=== PATIENT | female | born 1955 | race Caucasian/White ===

== ENCOUNTER 2020-06-20 23:05 | Observation (INO) | payer MEDICARE ==
--- NOTE | 2020-06-20 23:19 | ED ---
Chest Pain HPI - General Chief Complaint: Chest Pain Stated Complaint: SOB, Chest Pain Time Seen by Provider: 06/20/20 23:08 Source: patient, EMS, RN notes reviewed, old records reviewed Mode of arrival: EMS Limitations: no limitations - History of Present Illness Initial Comments: This is a 62-year-old female DF for evaluation with history of heart disease. Patient coming in for severe chest pain today. Patient is going to [facility], but does have significant history of CAD with MT. Patient coming in for chest pain today and severely elevated blood pressure at [facility] patient has persistent chest pain here in the ER. Patient is a cigarette for alcohol withdrawal. MD Complaint: chest pain -: days(s) Onset: during rest, during exertion Pain Location: substernal Pain Radiation: none Severity: mild Severity scale (1-10): 3 Quality: tightness, heaviness Consistency: constant Improves With: nothing Worsens With: nothing Context: other (going through alcohol withdrawal at [facility]) Anginal Symptoms: nausea Other Symptoms: palpitations Treatments Prior to Arrival: none - Related Data Home Medications Medication Instructions Recorded Confirmed Acetaminophen [Tylenol Arthritis] 650 mg PO Q4H PRN 06/21/20 06/21/20 Carvedilol [Coreg] 12.5 mg PO BID@0600,1730 06/21/20 06/21/20 Chlorpheniramine Maleate 4 mg PO Q4H PRN 06/21/20 06/21/20 [Chlor-Trimeton] Loperamide [Imodium] 2 mg PO QID PRN 06/21/20 06/21/20 Multivitamins, Thera [Multivitamin 1 tab PO DAILY@0600 06/21/20 06/21/20 (formulary)] Thiamine [Vitamin B-1] 100 mg PO DAILY@0600 06/21/20 06/21/20 Tigan 200mg 200 mg IM Q6H PRN 06/21/20 06/21/20 Trimethobenzamide [Tigan] 300 mg PO Q6H PRN 06/21/20 06/21/20 Zofran 42mg/Ml 4 mg IM Q6H PRN 06/21/20 06/21/20 busPIRone HCl [Buspar] 10 mg PO TID PRN 06/21/20 06/21/20 cloNIDine HCL [Catapres] 0.3 mg PO Q4H PRN 06/21/20 06/21/20 ondansetron HCL [Zofran] 8 mg PO Q6H PRN 06/21/20 06/21/20 traZODone HCL 50 - 150 mg PO HS 06/21/20 06/21/20 Previous Rx's Medication Instructions Recorded Etodolac [Lodine] 400 mg PO BID #10 tab 06/21/20 Famotidine [Pepcid] 20 mg PO BID #20 tablet 06/21/20 Allergies Allergy/AdvReac Type Severity Reaction Status Date / Time No Known Allergies Allergy Verified 06/21/20 07:49 Review of Systems ROS Statement: Those systems with pertinent positive or pertinent negative responses have been documented in the HPI. ROS Other: All systems not noted in ROS Statement are negative. EKG Findings - EKG Comments: EKG Findings:: KG shows normal sinus rhythm rate of 64 SD 150 QRS 78 QTc 453 Past Medical History Past Medical History: Blood Disorder, Myocardial Infarction (MT), Musculoskeletal Disorder Additional Past Medical History / Comment(s): mi 2016, Hep C History of Any Multi-Drug Resistant Organisms: None Reported Past Surgical History: No Surgical Hx Reported Smoking Status: Current every day smoker Past Alcohol Use History: Abuse Past Drug Use History: None Reported General Exam Limitations: no limitations General appearance: alert, in no apparent distress Head exam: Present: atraumatic, normocephalic, normal inspection Eye exam: Present: normal appearance, PERRL, EOMI. Absent: scleral icterus, conjunctival injection, periorbital swelling ENT exam: Present: normal exam, mucous membranes moist Neck exam: Present: normal inspection. Absent: tenderness, meningismus, lymphad enopathy Respiratory exam: Present: normal lung sounds bilaterally. Absent: respiratory distress, wheezes, rales, rhonchi, stridor Cardiovascular Exam: Present: regular rate, normal rhythm, normal heart sounds. Absent: systolic murmur, diastolic murmur, rubs, gallop, clicks GI/Abdominal exam: Present: soft, normal bowel sounds. Absent: distended, tenderness, guarding, rebound, rigid Extremities exam: Present: normal inspection, full ROM, normal capillary refill. Absent: tenderness, pedal edema, joint swelling, calf tenderness Back exam: Present: normal inspection Neurological exam: Present: alert, oriented X3, CN II-XII intact Psychiatric exam: Present: normal affect, normal mood Skin exam: Present: warm, dry, intact, normal color. Absent: rash Course Vital Signs 06/20/20 06/21/20 06/21/20 23:09 02:08 02:18 Temperature 98.0 F 97.3 F L Pulse Rate 73 57 L Pulse Rate [ 50 L Pulse Oximetery ] Respiratory 16 17 16 Rate Blood Pressure 90/69 135/74 Blood Pressure 169/95 [Left Arm] O2 Sat by Pulse 97 94 L 95 Oximetry - Reevaluation(s) Reevaluation #1: Medical record is reviewed Patient is from [facility], for alcohol withdrawal Patient does feel better here in the ER Spoke with patient regarding findings here in the ER and questions are answered Patient has continued chest pain here in the ER blood pressure does continue to be very labile - Consultations Consultation #1: Spoke with PMH were agree for admission Chest Pain MDM - MDM [address] with history of MT patient coming with chest pain today. Patient is having severe anterior chest pain no fevers no shortness of breath currently. Patient did have significantly elevated blood pressure with blood pressure changes. Patient will be admitted for cardiac observation Critical Care Time Critical Care Time: Yes Total Critical Care Time: 31 Disposition Clinical Impression: Chest pain Disposition: ADMITTED IP TO THIS HOSP Condition: Undetermined Is patient prescribed a controlled substance at d/c from ED?: No
--- NOTE | 2020-06-20 23:47 | XR ---
EXAMINATION TYPE: XR chest 1V portable DATE OF EXAM: 06/20/2020 COMPARISON: NONE HISTORY: Short of breath TECHNIQUE: FINDINGS: Heart appears enlarged. There is no heart failure. Thoracic aorta is atheromatous. There is probably some minimal atelectasis at the lung bases. There are chest leads. Bony thorax appears inta ct. IMPRESSION: Mild subsegmental atelectasis at the lung bases.
[2020-06-20 23:48] LABS: Basophils # (A) 0.1 k/uL (0-0.2); Basophils % (A) 2 %; Eosinophils # (A) 0.1 k/uL (0-0.7); Eosinophils % (A) 2 %; HCT 37.6 % (34.0-46.0); HGB 12.2 gm/dL (11.4-16.0); Lymphocytes % (A) 41 %; MCH 29.8 pg (25.0-35.0); MCHC 32.6 g/dL (31.0-37.0); MCV 91.4 fL (80.0-100.0); Mean Platelet Volume 8.3; Monocytes # (A) 0.5 k/uL (0-1.0); Monocytes % (A) 10 %; Neutrophils # (A) 2.1 k/uL (1.3-7.7); Neutrophils % (A) 43 %; Platelet Count 209 k/uL (150-450); RBC 4.11 m/uL (3.80-5.40); RDW 15.4 % (11.5-15.5)
[2020-06-20 23:58] LABS: Partial Thromboplastin Time 23.9 sec (22.0-30.0); Prothrombin Time 10.7 sec (9.0-12.0)
[2020-06-21] MEDS ORDERED: SODIUM CHLORIDE 0.9% 1,000 ML IV STA ×3 (00:07→00:10)
[2020-06-21 00:20] LABS: ALT 25 U/L (4-34); AST 44 U/L (14-36); African American GFR (CKD) >90 (>60 ml/min/1.73 sqM); Albumin 4.1 g/dL (3.5-5.0); Alkaline Phosphatase 62 U/L (38-126); Anion Gap 7 mmol/L; Blood Urea Nitrogen 12 mg/dL (7-17); C Reactive Protein <5.0 mg/L (<10.0); Calcium 9.4 mg/dL (8.4-10.2); Carbon Dioxide 27 mmol/L (22-30); Chloride 104 mmol/L (98-107); Glucose 100 mg/dL (74-99); LDH 420 U/L (313-618); Magnesium 1.6 mg/dL (1.6-2.3); Non-African American GFR(CKD) 80 (>60 ml/min/1.73 sqM); Potassium 3.5 mmol/L (3.5-5.1); Sodium 138 mmol/L (137-145); Total Bilirubin 0.5 mg/dL (0.2-1.3); Total Protein 7.5 g/dL (6.3-8.2)
--- NOTE | 2020-06-21 01:24 | CT ---
EXAM: CT Angiography Chest With Intravenous Contrast CLINICAL HISTORY: ITS.REASON CT Reason: cp TECHNIQUE: Axial computed tomographic angiography images of the chest with intravenous contrast. CTDI is 15.17 mGy and DLP is 300.2 mGy-cm. This CT exam was performed using one or more of the following dose reduction techniques: automated exposure control, adjustment of the mA and/or kV according to patient size, and/or use of iterative reconstruction technique. MIP reconstructed images were created and reviewed. COMPARISON: No relevant prior studies available. FINDINGS: Pulmonary arteries: Unremarkable. No pulmonary embolism. Aorta: No acute findings. No thoracic aortic aneurysm. Lungs: Trace bibasilar atelectasis. Mild paraseptal emphysema. No mass. No consolidation. Pleural space: Unremarkable. No significant effusion. No pneumothorax. Heart: Cardiomegaly with reflux of contrast into the hepatic veins. No significant pericardial effusion. Bones/joints: No acute fracture. No dislocation. Soft tissues: Unremarkable. Lymph nodes: Unremarkable. No enlarged lymph nodes. IMPRESSION: 1. No acute pulmonary embolus. 2. Cardiomegaly with reflux of contrast into the hepatic veins which may be seen in the setting of elevated right heart pressures.
[2020-06-21] MEDS ORDERED: NITROGLYCERIN SL TABS 0.4 MG TAB SUBLINGUAL PRN (01:57)
[2020-06-21] MEDS ORDERED: ASPIRIN 81 MG PO STA (01:57)
[2020-06-21] MEDS: MORPHINE SULFATE 4 MG/ML SYRINGE IV PRN ×3 (02:21→11:18)
[2020-06-21] MEDS ORDERED: LOPERAMIDE 2 MG CAP PO PRN (11:41)
[2020-06-21] MEDS ORDERED: TRIMETHOBENZAMIDE 300 MG CAP PO PRN (11:41)
[2020-06-21] MEDS ORDERED: ONDANSETRON 4 MG TAB PO PRN (11:41)
[2020-06-21] MEDS ORDERED: TRIMETHOBENZAMIDE 100 MG/ML 2 ML VIAL IM PRN (11:41)
[2020-06-21] MEDS ORDERED: diphenhydrAMINE 25 MG CAP PO PRN (11:41)
[2020-06-21] MEDS ORDERED: ACETAMINOPHEN TAB 325 MG TAB PO PRN (11:41)
[2020-06-21] MEDS ORDERED: CAFFEINE CITRATE 60 MG/3 ML VIAL IV PRN (11:54)
[2020-06-21] MEDS ORDERED: AMINOPHYLLINE 500 MG/20 ML VIAL IV PRN (11:54)
[2020-06-21] MEDS ORDERED: REGADENOSON 0.4 MG/5 ML SYRINGE IV PRN (11:54)
--- NOTE | 2020-06-21 12:52 | P.CRDCN ---
History of Present Illness History of present illness: HISTORY OF PRESENTING ILLNESS This is a pleasant 64-year-old female past medical history significant for ankylosing spondylitis, Lipitor arthritis, hepatitis C, hypertension, apparent duodenal tear approximately one year ago, tobacco abuse, Vaping abuse, alcohol abuse, questionable "CT" in 2016 who presents secondary to episodes of chest pain, lightheadedness. She has been having chest pain which radiates to both arms off and on over the last few days radiating to the neck. She admits to some associated shortness breath. She was given nitroglycerin in the emergency department however this did not have much effect. She admits she has been drinking much more or last 1 year and therefore went to rehab to detox. She apparently was there and then started noticing that with exertion she will get short of breath and also had some chest pain. She states she believes she had a "small heart attack" back in 2016 out of [facility]. Apparently she had a heart catheterization which showed no significant disease however was also told that she had "damage to a small part of her heart". She admits she has not followed up with her primary wet roaster, Dr. Emmanuel. She had CTA PE protocol which showed no PE and questionable cardiomegaly with reflux contrast in the hepatic veins. DIAGNOSTICS EKG reveals normal sinus rhythm, Q waves V1 and V2, no significant ST or T-wave abnormalities. CTA chest showed no PE and cardiomegaly Laboratory reviewed, white blood cell count 5.0, hemoglobin 12.2, platelets 209, creatinine 0.8, AST 44, ALT 25, troponins less than 0.012, CRP less than 5. Current cardiac medications include carvedilol 12.5 mg twice a day, aspirin 325 mg daily, nitro as needed. REVIEW OF SYSTEMS At the time of my exam: CONSTITUTIONAL: Denies fever or chills. CARDIOVASCULAR: + chest pain, +shortness of breath, no orthopnea, PND or palpitations. RESPIRATORY: Denies cough. GASTROINTESTINAL: Denies abdominal pain, diarrhea, constipation, nausea or vomiting. MUSCULOSKELETAL: Denies myalgias. NEUROLOGIC: Denies numbness, tingling or weakness. ENDOCRINE: Denies fatigue, weight change, polydipsia or polyurina. GENITOURINARY: Denies burning, hematuria or urgency with micturation. HEMATOLOGIC: Denies history of anemia or bleeding. PHYSICAL EXAMINATION Vital signs reviewed CONSTITUTIONAL: No apparent distress. HEENT: Head is normocephalic. Pupils are equal, round. Sclerae anicteric. Mucous membranes of the mouth are moist. No JVD. No carotid bruit. CHEST EXAMINATION: Lungs are clear to auscultation. No chest wall tenderness is noted on palpation or with deep breathing. HEART EXAMINATION: Regular rate and rhythm. S1, S2 heard. No murmurs, gallops or rub. ABDOMEN: Soft, nontender. Positive bowel sounds. EXTREMITIES: 2+ peripheral pulses, no lower extremity edema and no calf tenderness. NEUROLOGIC EXAMINATION: Patient is awake, alert and oriented x3. ASSESSMENT 1. Atypical chest pain, troponins negative 3, CTA PE protocol no PE 2. Shortness of breath of unclear etiology. Patient stable on room air without significant hypoxia. 3. Tobacco abuse, vaping 4. Chronic alcohol abuse, recently undergoing rehab 5. Questionable history of "small CT" however normal heart catheterization reportedly per patient in 2016 6. Ankylosing spondylitis 7. Rheumatoid arthritis 8. Hypertension, labile 9. Hepatitis C PLAN Patient normally follows with a Dr Emmanuel and had prior workup at [facility] in 2016. Patient's symptoms are somewhat atypical and troponins negative 3. We will check an echo and Lexiscan stress test. If both are unrevealing, patient may be discharged from cardiology standpoint with outpatient follow-up. Advised tobacco and alcohol cessation. Past Medical History Past Medical History: Blood Disorder, Myocardial Infarction (CT), Musculoskeletal Disorder Additional Past Medical History / Comment(s): mi 2016, Hep C, ETOH use states she would drink a fifth of vodka a day. Last Myocardial Infarction Date:: 2015 History of Any Multi-Drug Resistant Organisms: None Reported Past Surgical History: No Surgical Hx Reported Past Anesthesia/Blood Transfusion Reactions: No Reported Reaction Past Psychological History: No Psychological Hx Reported Smoking Status: Current every day smoker, Vaper Past Alcohol Use History: Abuse Past Drug Use History: None Reported Medications and Allergies Home Medications Medication Instructions Recorded Confirmed Type Acetaminophen [Tylenol Arthritis] 650 mg PO Q4H PRN 06/21/20 06/21/20 History Carvedilol [Coreg] 12.5 mg PO BID@0600,1730 06/21/20 06/21/20 History Chlorpheniramine Maleate 4 mg PO Q4H PRN 06/21/20 06/21/20 History [Chlor-Trimeton] Etodolac [Lodine] 400 mg PO BID #10 tab 06/21/20 Rx Famotidine [Pepcid] 20 mg PO BID #20 tablet 06/21/20 Rx Loperamide [Imodium] 2 mg PO QID PRN 06/21/20 06/21/20 History Multivitamins, Thera [Multivitamin 1 tab PO DAILY@0600 06/21/20 06/21/20 History (formulary)] Thiamine [Vitamin B-1] 100 mg PO DAILY@0600 06/21/20 06/21/20 History Tigan 200mg 200 mg IM Q6H PRN 06/21/20 06/21/20 History Trimethobenzamide [Tigan] 300 mg PO Q6H PRN 06/21/20 06/21/20 History Zofran 42mg/Ml 4 mg IM Q6H PRN 06/21/20 06/21/20 History busPIRone HCl [Buspar] 10 mg PO TID PRN 06/21/20 06/21/20 History cloNIDine HCL [Catapres] 0.3 mg PO Q4H PRN 06/21/20 06/21/20 History ondansetron HCL [Zofran] 8 mg PO Q6H PRN 06/21/20 06/21/20 History traZODone HCL 50 - 150 mg PO HS 06/21/20 06/21/20 History Allergies Allergy/AdvReac Type Severity Reaction Status Date / Time No Known Allergies Allergy Verified 06/21/20 07:49 Physical Exam Vitals: Vital Signs Temp Pulse Pulse Resp BP BP BP 06/21/20 06:57 97.8 F 58 L 17 154/95 06/21/20 02:18 57 L 16 135/74 06/21/20 02:08 97.3 F L 50 L 17 169/95 06/20/20 23:09 98.0 F 73 16 90/69 Pulse Ox 06/21/20 06:57 93 L 06/21/20 02:18 95 06/21/20 02:08 94 L 06/20/20 23:09 97 Intake and Output 06/20/20 06/21/20 06/21/20 22:59 06:59 14:59 Intake Total 1999 Balance 1999 Intake: Intake, IV Titration 2000 Amount Sodium Chloride 0.9% 1, 1000 000 ml @ 999 mls/hr IV . Q1H1M STA Rx#:[id number] Sodium Chloride 0.9% 1, 1000 000 ml @ 999 mls/hr IV . Q1H1M STA Rx#:[id number] Other: # Voids 1 Weight 54.431 kg Results 06/20/20 23:28 06/20/20 23:28 Cardiac Enzymes 06/20/20 06/20/20 06/21/20 Range/Units 23:28 23:28 02:47 AST 44 H (14-36) U/L Lactate Dehydrogenase 420 (313-618) U/L Troponin I <0.012 <0.012 (0.000-0.034) ng/mL 06/21/20 Range/Units 04:55 AST (14-36) U/L Lactate Dehydrogenase (313-618) U/L Troponin I <0.012 (0.000-0.034) ng/mL Coagulation 06/20/20 Range/Units 23:28 PT 10.7 (9.0-12.0) sec APTT 23.9 (22.0-30.0) sec CBC 06/20/20 Range/Units 23:28 WBC 5.0 (3.8-10.6) k/uL RBC 4.11 (3.80-5.40) m/uL Hgb 12.2 (11.4-16.0) gm/dL Hct 37.6 (34.0-46.0) % Plt Count 209 (150-450) k/uL Comprehensive Metabolic Panel 06/20/20 Range/Units 23:28 Sodium 138 (137-145) mmol/L Potassium 3.5 (3.5-5.1) mmol/L Chloride 104 (98-107) mmol/L Carbon Dioxide 27 (22-30) mmol/L BUN 12 (7-17) mg/dL Creatinine 0.80 (0.52-1.04) mg/dL Glucose 100 H (74-99) mg/dL Calcium 9.4 (8.4-10.2) mg/dL AST 44 H (14-36) U/L ALT 25 (4-34) U/L Alkaline Phosphatase 62 (38-126) U/L Total Protein 7.5 (6.3-8.2) g/dL Albumin 4.1 (3.5-5.0) g/dL Current Medications Generic Name Dose Route Start Last Admin Trade Name Freq PRN Reason Stop Dose Admin Acetaminophen 650 mg 06/21/20 11:41 Acetaminophen Tab 325 Mg Tab PO Q4H PRN Mild Pain Aminophylline 100 mg 06/21/20 11:54 Aminophylline 500 Mg/20 Ml Vial IV 06/21/20 15:56 ONCE PRN Patient Response Aspirin 325 mg 06/22/20 09:00 Aspirin 325 Mg Tab PO DAILY FERNANDEZ Buspirone HCl 10 mg 06/21/20 11:41 Buspirone Hcl 10 Mg Tab PO TID PRN Anxiety Caffeine Citrate 60 mg 06/21/20 11:54 Caffeine Citrate 60 Mg/3 Ml Vial IV 06/21/20 15:56 ONCE PRN Patient Response Carvedilol 12.5 mg 06/21/20 17:30 Carvedilol 12.5 Mg Tab PO BID@0600,1730 [facility] Diphenhydramine HCl 25 mg 06/21/20 11:41 Diphenhydramine 25 Mg Cap PO Q4H PRN Allergy Symptoms Ketorolac Tromethamine 15 mg 06/21/20 11:44 Ketorolac 15 Mg/Ml 1 Ml Vial IVP 06/26/20 11:45 Q6HR PRN Pain Loperamide HCl 2 mg 06/21/20 11:41 Loperamide 2 Mg Cap PO QID PRN Loose Stool Nitroglycerin 0.4 mg 06/21/20 01:57 Nitroglycerin Sl Tabs 0.4 Mg Tab SUBLINGUAL Q5M PRN Chest Pain Ondansetron HCl 8 mg 06/21/20 11:41 Ondansetron 4 Mg Tab PO Q6H PRN Nausea Pantoprazole Sodium 40 mg 06/21/20 12:00 Pantoprazole 40 Mg/10 Ml Vial IVP BID FERNANDEZ Regadenoson 0.4 mg 06/21/20 11:54 Regadenoson 0.4 Mg/5 Ml Syringe IV 06/21/20 15:56 ONCE PRN Per Protocol Thiamine HCl 100 mg 06/22/20 06:00 Thiamine 100 Mg Tab PO DAILY@0600 [facility] Trazodone HCl 50 mg 06/21/20 21:00 Trazodone Hcl 50 Mg Tab PO HS FERNANDEZ Trimethobenzamide HCl 200 mg 06/21/20 11:41 Trimethobenzamide 100 Mg/Ml 2 Ml Vial IM Q6H PRN Nausea Trimethobenzamide HCl 300 mg 06/21/20 11:41 Trimethobenzamide 300 Mg Cap PO Q6H PRN Nausea Intake and Output 06/20/20 06/21/20 06/21/20 22:59 06:59 14:59 Intake Total 1999 Balance 1999 Intake: Intake, IV Titration 2000 Amount Sodium Chloride 0.9% 1, 1000 000 ml @ 999 mls/hr IV . Q1H1M STA Rx#:[id number] Sodium Chloride 0.9% 1, 1000 000 ml @ 999 mls/hr IV . Q1H1M STA Rx#:[id number] Other: # Voids 1 Weight 54.431 kg 06/20/20 23:28 06/20/20 23:28
--- NOTE | 2020-06-21 14:00 | ECHOF ---
Referral Reason:chest pain MEASUREMENTS -------- HEIGHT: 154.9 cm WEIGHT: 54.4 kg BP: RVIDd: 3.2 cm (< 3.3) IVSd: 2.1 cm (0.6 - 1.1) LVIDd: 3.7 cm (3.9 - 5.3) LVPWd: 1.8 cm (0.6 - 1.1) IVSs: 2.4 cm LVIDs: 2.4 cm LVPWs: 1.9 cm LAESV Index (A-L): 39.55 ml/m Ao Diam: 3.0 cm (2.0 - 3.7) AV Cusp: 2.3 cm (1.5 - 2.6) LA Diam: 4.4 cm (2.7 - 3.8) MV EXCURSION: 16.312 mm (> 18.000) MV EF SLOPE: 65 mm/s (70 - 150) EPSS: 0.1 cm MV E Brenden: 1.14 m/s MV DecT: 230 ms MV A Brenden: 0.53 m/s MV E/A Ratio: 2.15 RAP: 20.00 mmHg RVSP: 26.68 mmHg FINDINGS -------- This was a technically good study. The left ventricular size is normal. There is severe concentric left ventricular hypertrophy. Ove rall left ventricular systolic function is normal with, an EF between 55 - 60 %. Increased LAP Grad e 2 Diastolic Dysfunction. The right ventricle is normal in size. LA is moderately dilated 34-39 ml/m2 The right atrial size is normal. Aortic valve is trileaflet and is mildly thickened. The mitral valve is normal. The mitral valve leaflets are mildly thickened. There is trace mitral regurgitation. There is a small mobile echodensity attached to the mitral leaflet. Cannot rule ou t myxomatous tissue vs vegetation vs mass. May consider LIZ if clinically indicated. The tricuspid valve appears structurally normal. Mild tricuspid regurgitation present. Right vent ricular systolic pressure is normal at < 35 mmHg. Trace/mild (physiologic) pulmonic regurgitation. The aortic root size is normal. The inferior vena cava is dilated with no significant inspiratory collapse which is consistent estima kedar right atrial pressure of >20 mmHg. There is no pericardial effusion. CONCLUSIONS -------- 1. The left ventricular size is normal. 2. There is severe concentric left ventricular hypertrophy. 3. Overall left ventricular systolic function is normal with, an EF between 55 - 60 %. 4. Increased LAP Grade 2 Diastolic Dysfunction. 5. LA is moderately dilated 34-39 ml/m2 6. The mitral valve leaflets are mildly thickened. 7. There is trace mitral regurgitation. 8. There is a small mobile echodensity attached to the mitral leaflet. Cannot rule out myxomatous ti ssue vs vegetation vs mass. May consider LIZ if clinically indicated. 9. Mild tricuspid regurgitation present. 10. Trace/mild (physiologic) pulmonic regurgitation. 11. The inferior vena cava is dilated with no significant inspiratory collapse which is consistent es timated right atrial pressure of >20 mmHg. 12. There is no pericardial effusion. PATIENT BILLER: Karrie Ro RDCS
--- NOTE | 2020-06-21 14:36 | P.HPIM ---
History of Present Illness Patient is a 64-year-old female came in with complains of chest pain which is pressure like sensation 6/10 in severity nonradiating no associated shortness, diaphoresis pain is constant in nature constant patient pain is mostly repro ducible. Patient the had a questionable CT in 2016. Patient had a cardiac catheterization but never received any stents. Patient is presently in alcohol rehabitation program. Patient denied any fever chills patient just pain is nonpleuritic not associated with food. Review of Systems REVIEW OF SYSTEMS: CONSTITUTIONAL: No fever, no malaise, no fatigue. HEENT: No recent visual problems or hearing problems. Denied any sore throat. CARDIOVASCULAR: No orthopnea, PND, no palpitations, no syncope. PULMONARY: No shortness of breath, no cough, no hemoptysis. GASTROINTESTINAL: No diarrhea, no nausea, no vomiting, no abdominal pain. NEUROLOGICAL: No headaches, no weakness, no numbness. HEMATOLOGICAL: Denies any bleeding or petechiae. GENITOURINARY: Denies any burning micturition, frequency, or urgency. MUSCULOSKELETAL/RHEUMATOLOGICAL: Denies any joint pain, swelling, or any muscle pain. ENDOCRINE: Denies any polyuria or polydipsia. The rest of the 14-point review of systems is negative. Past Medical History Past Medical History: Blood Disorder, Myocardial Infarction (CT), Musculoskeletal Disorder Additional Past Medical History / Comment(s): mi 2016, Hep C, ETOH use states she would drink a fifth of vodka a day. Last Myocardial Infarction Date:: 2015 History of Any Multi-Drug Resistant Organisms: None Reported Past Surgical History: No Surgical Hx Reported Past Anesthesia/Blood Transfusion Reactions: No Reported Reaction Past Psychological History: No Psychological Hx Reported Smoking Status: Current every day smoker, Vaper Past Alcohol Use History: Abuse Past Drug Use History: None Reported Medications and Allergies Home Medications Medication Instructions Recorded Confirmed Type Acetaminophen [Tylenol Arthritis] 650 mg PO Q4H PRN 06/21/20 06/21/20 History Carvedilol [Coreg] 12.5 mg PO BID@0600,1730 06/21/20 06/21/20 History Chlorpheniramine Maleate 4 mg PO Q4H PRN 06/21/20 06/21/20 History [Chlor-Trimeton] Etodolac [Lodine] 400 mg PO BID #10 tab 06/21/20 Rx Famotidine [Pepcid] 20 mg PO BID #20 tablet 06/21/20 Rx Loperamide [Imodium] 2 mg PO QID PRN 06/21/20 06/21/20 History Multivitamins, Thera [Multivitamin 1 tab PO DAILY@0600 06/21/20 06/21/20 History (formulary)] Thiamine [Vitamin B-1] 100 mg PO DAILY@0600 06/21/20 06/21/20 History Tigan 200mg 200 mg IM Q6H PRN 06/21/20 06/21/20 History Trimethobenzamide [Tigan] 300 mg PO Q6H PRN 06/21/20 06/21/20 History Zofran 42mg/Ml 4 mg IM Q6H PRN 06/21/20 06/21/20 History busPIRone HCl [Buspar] 10 mg PO TID PRN 06/21/20 06/21/20 History cloNIDine HCL [Catapres] 0.3 mg PO Q4H PRN 06/21/20 06/21/20 History ondansetron HCL [Zofran] 8 mg PO Q6H PRN 06/21/20 06/21/20 History traZODone HCL 50 - 150 mg PO HS 06/21/20 06/21/20 History Allergies Allergy/AdvReac Type Severity Reaction Status Date / Time No Known Allergies Allergy Verified 06/21/20 07:49 Physical Exam Vitals: Vital Signs Temp Pulse Pulse Resp BP BP BP 06/21/20 14:25 98.1 F 54 L 18 159/95 06/21/20 06:57 97.8 F 58 L 17 154/95 06/21/20 02:18 57 L 16 135/74 06/21/20 02:08 97.3 F L 50 L 17 169/95 06/20/20 23:09 98.0 F 73 16 90/69 Pulse Ox 06/21/20 14:25 93 L 06/21/20 06:57 93 L 06/21/20 02:18 95 06/21/20 02:08 94 L 06/20/20 23:09 97 Intake and Output 06/20/20 06/21/20 06/21/20 22:59 06:59 14:59 Intake Total 1999 Balance 1999 Intake: Intake, IV Titration 2000 Amount Sodium Chloride 0.9% 1, 1000 000 ml @ 999 mls/hr IV . Q1H1M STA Rx#:[id number] Sodium Chloride 0.9% 1, 1000 000 ml @ 999 mls/hr IV . Q1H1M STA Rx#:[id number] Other: # Voids 1 1 Weight 54.431 kg PHYSICAL EXAMINATION: GENERAL: The patient is alert and oriented x3, not in any acute distress. Well developed, well nourished. HEENT: Pupils are round and equally reacting to light. EOMI. No scleral icterus. No conjunctival pallor. Normocephalic, atraumatic. No pharyngeal erythema. No thyromegaly. CARDIOVASCULAR: S1 and S2 present. No murmurs, rubs, or gallops. Reproducible chest pain PULMONARY: Chest is clear to auscultation, no wheezing or crackles. ABDOMEN: Soft, nontender, nondistended, normoactive bowel sounds. No palpable organomegaly. MUSCULOSKELETAL: No joint swelling or deformity. EXTREMITIES: No cyanosis, clubbing, or pedal edema. NEUROLOGICAL: Gross neurological examination did not reveal any focal deficits. SKIN: No rashes. Results CBC & Chem 7: 06/20/20 23:28 06/20/20 23:28 Labs: Abnormal Lab Results - Last 24 Hours (Table) 06/20/20 Range/Units 23:28 Glucose 100 H (74-99) mg/dL AST 44 H (14-36) U/L Thrombosis Risk Factor Assmnt - Choose All That Apply Any of the Below Risk Factors Present?: No Other Risk Factors: Yes Each Risk Factor Represents 2 Points: Age 61-74 years Other congenital or acquired thrombophilia - If yes, enter type in comment: No Thrombosis Risk Factor Assessment Total Risk Factor Score: 2 Thrombosis Risk Factor Assessment Level: Low Risk Assessment and Plan Plan: -Chest pain atypical ruled out acute concurrent syndromes ruled out pulmonary embolism. Patient will undergo stress test tomorrow if that's negative patient will be discharged tomorrow. Patient just pain appears to be musculoskeletal because of which I put her on anti-inflammatory medications disc in your morphine -shortness of breath: All the workup is negative to rule out pulmonary embolism rule out pneumonia CT of the chest is essentially within normal limits -History of alcohol abuse presently undergoing rehabilitation -hypertension -history of hepatitis C -History of ankylosing spondylitis. -Continued nicotine use: Counseling was provided
[2020-06-21] MEDS: PANTOPRAZOLE 40 MG/10 ML VIAL IVP SCH ×2 (15:26→21:39)
[2020-06-21] MEDS: carvediloL 12.5 MG TAB PO SCH (17:25)
[2020-06-21] MEDS: KETOROLAC 15 MG/ML 1 ML VIAL IVP PRN (17:28)
[2020-06-21] MEDS: traZODone HCL 50 MG TAB PO SCH (21:39)
[2020-06-22] MEDS ORDERED: ALBUTEROL NEBULIZED 1.25 MG/3 ML INHALATION PRN ×2 (05:20→05:58)
[2020-06-22] MEDS: carvediloL 12.5 MG TAB PO SCH ×2 (05:34→16:51)
[2020-06-22] MEDS: THIAMINE 100 MG TAB PO SCH (05:34)
[2020-06-22] MEDS: KETOROLAC 15 MG/ML 1 ML VIAL IVP PRN (05:39)
[2020-06-22] MEDS ORDERED: ALBUTEROL NEBULIZED 2.5 MG/3 ML INHALATION ONE (06:01)
[2020-06-22] MEDS: PANTOPRAZOLE 40 MG/10 ML VIAL IVP SCH ×2 (08:00→21:13)
[2020-06-22] MEDS: ASPIRIN 325 MG TAB PO SCH (08:00)
[2020-06-22] MEDS: busPIRone HCl 10 MG TAB PO PRN ×2 (08:04→16:03)
[2020-06-22] MEDS ORDERED: hydrALAZINE HCL 20 MG/ML 1 ML VIAL IVP STA (09:09)
[2020-06-22 10:39] LABS: Chol/HDL Ratio 2.15
[2020-06-22] MEDS ORDERED: LOSARTAN 25 MG TAB PO ONE (11:12)
[2020-06-22] MEDS ORDERED: hydrALAZINE HCL 20 MG/ML 1 ML VIAL IM STA (13:10)
[2020-06-22] MEDS ORDERED: hydrALAZINE HCL 50 MG TAB PO SCH ×3 (14:00→22:00)
--- NOTE | 2020-06-22 14:22 | P.PN ---
Subjective his is a pleasant 64-year-old female past medical history significant for ankylosing spondylitis, Lipitor arthritis, hepatitis C, hypertension, apparent duodenal tear approximately one year ago, tobacco abuse, Vaping abuse, alcohol abuse, questionable "MO" in 2016 who presents secondary to episodes of chest pain, lightheadedness. She has been having chest pain which radiates to both arms off and on over the last few days radiating to the neck. She admits to some associated shortness breath. She was given nitroglycerin in the emergency department however this did not have much effect. She admits she has been drinking much more or last 1 year and therefore went to rehab to detox. She apparently was there and then started noticing that with exertion she will get short of breath and also had some chest pain. She states she believes she had a "small heart attack" back in 2016 out of [facility]. Apparently she had a heart catheterization which showed no significant disease however was also told that she had "damage to a small part of her heart". She admits she has not followed up with her primary shank scourer, Dr. Emmanuel and had prior workup at [facility] in 2016. She had CTA PE protocol which showed no PE and questionable cardiomegaly with reflux contrast in the hepatic veins. EKG reveals normal sinus rhythm, Q waves V1 and V2, no significant ST or T-wave abnormalities. Laboratory reviewed, white blood cell count 5.0, hemoglobin 12.2, platelets 209, creatinine 0.8, AST 44, ALT 25, troponins negative x 3, CRP less than 5. 3/ Patient seen and examined at bedside, continues to have chest pressure that radiates to both arms and with some shortness of breath which has unchanged. Her BP is elevated 200/100, HR 63, afebrile. This is before her scheduled antihypertensive. She has been getting IV toradol Q6hr, which could be contributing to her hypertension. Current cardiac medications include carvedilol 12.5 mg twice a day, aspirin 325 mg daily, nitro as needed. For blood pressure patient given, IV hydralazine 25mg this AM with no improv ement in BP. Prior to Lexiscan patient's BP 200s/100s. Patient returned to room and given Losartan 25mg and will potentially repeat Lexiscan. BP 204/102 HR 60s. Lexiscan rescheduled for tomorrow. PHYSICAL EXAMINATION CONSTITUTIONAL: No apparent distress. HEENT: Head is normocephalic. Pupils are equal, round. Sclerae anicteric. Mucous membranes of the mouth are moist. No JVD. No carotid bruit. CHEST EXAMINATION: Lungs are clear to auscultation. No chest wall tenderness is noted on palpation or with deep breathing. HEART EXAMINATION: Regular rate and rhythm. S1, S2 heard. No murmurs, gallops or rub. ABDOMEN: Soft, nontender. Positive bowel sounds. EXTREMITIES: 2+ peripheral pulses, no lower extremity edema and no calf tenderness. NEUROLOGIC EXAMINATION: Patient is awake, alert and oriented x3. ASSESSMENT 1. Atypical chest pain, troponins negative 3, CTA PE protocol no PE 2. Shortness of breath of unclear etiology. Patient stable on room air without significant hypoxia. 3. Tobacco abuse, vaping 4. Chronic alcohol abuse, recently undergoing rehab 5. Questionable history of "small MO" however normal heart catheterization reportedly per patient in 2016 6. Ankylosing spondylitis 7. Rheumatoid arthritis 8. Hypertension 9. Hepatitis C PLAN -Will start Losartan 25mg daily, continue carvedilol 12.5mg BID -Plan for Lexiscan stress test tomorrow with improvement in BP. If unrevealing, patient may be discharged from cardiology standpoint with outpatient follow-up. Advised tobacco and alcohol cessation. Objective - Vital Signs Vital signs: Vital Signs Temp 97.7 F 06/22/20 07:05 Pulse 63 06/22/20 07:05 Resp 16 06/22/20 07:05 BP 204/102 06/22/20 12:49 Pulse Ox 91 L 06/22/20 07:05 Intake & Output 06/21/20 06/22/20 06/22/20 18:59 06:59 18:59 Intake Total 1040 Balance 1040 Intake: Intake, IV Titration 1040 Amount Sodium Chloride 0.9% 1, 1040 000 ml @ 130 mls/hr IV . Q7H42M STA Rx#:[id number] Other: Voiding Method Toilet Toilet # Voids 1 1 - Labs CBC & Chem 7: 06/20/20 23:28 06/20/20 23:28 Labs: Abnormal Lab Results - Last 24 Hours (Table) 06/20/20 Range/Units 23:28 HDL Cholesterol 71.0 H (40.0-60.0) mg/dL
--- NOTE | 2020-06-22 15:52 | P.PN ---
Subjective Progress Note Date: 06/22/20 Patient is a 64-year-old female came in with complains of chest pain which is pressure like sensation 6/10 in severity nonradiating no associated shortness, diaphoresis pain is constant in nature constant patient pain is mostly reproducible. Patient the had a questionable HI in 2016. Patient had a cardiac catheterization but never received any stents. Patient is presently in alcohol rehabitation program. Patient denied any fever chills patient just pain is nonpleuritic not associated with food. 06/22/2020 Patient was seen and evaluated and follow-up scheduled to undergo a stress test with cardiology although blood pressure was too high. Blood pressure was 204/102. Patient was given hydralazine and started on oral hydralazine along with cardiology starting losartan and patient became hypotensive. Patient was given a 500 mL bolus. Patient is currently 114 systolic and doing better. Radha greenberg continues to have chest pain and some nausea noted that she has had since admission. Patient does have Tylenol and/or Toradol ordered although is refusing stating that does not help. Review of systems: Constitutional: No reports of fatigue, fever, or chills Cardiovascular: Reports continued chest pain Respiratory: No reports of shortness of breath or cough GI: reports intermittent nausea, no reports of vomiting, or diarrhea : No reports of dysuria or retention Neurovascular: No reports of weakness or numbness All medications have been reviewed Objective - Vital Signs Vital signs: Vital Signs Temp 97.7 F 06/22/20 07:05 Pulse 63 06/22/20 07:05 Resp 16 06/22/20 07:05 BP 204/102 06/22/20 12:49 Pulse Ox 91 L 06/22/20 07:05 Intake & Output 06/21/20 06/22/20 06/22/20 18:59 06:59 18:59 Intake Total 1040 Balance 1040 Intake: Intake, IV Titration 1040 Amount Sodium Chloride 0.9% 1, 1040 000 ml @ 130 mls/hr IV . Q7H42M STA Rx#:[id number] Other: Voiding Method Toilet Toilet # Voids 1 1 - Exam GENERAL: The patient is alert and oriented x3, not in any acute distress. Well developed, well nourished. HEENT: Pupils are round and equally reacting to light. EOMI. No scleral icterus. No conjunctival pallor. Normocephalic, atraumatic. No pharyngeal erythema. No thyromegaly. CARDIOVASCULAR: S1 and S2 present. No murmurs, rubs, or gallops. Reproducible chest pain PULMONARY: Chest is clear to auscultation, no wheezing or crackles. ABDOMEN: Soft, nontender, nondistended, normoactive bowel sounds. No palpable organomegaly. MUSCULOSKELETAL: No joint swelling or deformity. EXTREMITIES: No cyanosis, clubbing, or pedal edema. NEUROLOGICAL: Gross neurological examination did not reveal any focal deficits. SKIN: No rashes. - Labs CBC & Chem 7: 06/20/20 23:28 06/20/20 23:28 Labs: Abnormal Lab Results - Last 24 Hours (Table) 06/20/20 Range/Units 23:28 HDL Cholesterol 71.0 H (40.0-60.0) mg/dL Assessment and Plan Assessment: -Chest pain atypical ruled out acute coronary syndromes, ruled out pulmonary embolism. Patient was scheduled to undergo stress test although patient's blood pressure was too high. Patient given and patient became slightly hypotensive 90s systolic and was given a 500 mL bolus and blood pressure has improved. Patient was started on losartan and hydralazine. Will continue to monitor blood pressure closely and hold hydralazine if blood pressure is less than 120 systolic. Patient continues to have chest pain which appears to be musculoskeletal and does have Tylenol and Toradol ordered although was refusing stating it does not help -shortness of breath: All the workup is negative to rule out pulmonary embolism rule out pneumonia CT of the chest is essentially within normal limits, improved -History of alcohol abuse presently undergoing rehabilitation -hypertension -history of hepatitis C -History of ankylosing spondylitis. -Continued nicotine use: Counseling was provided Plan: Continue with current medications. Patient was started on losartan and hydralazine and had an episode of hypotension and will monitor closely. Patient was given a 500 mL bolus of normal saline and blood pressure improved. Patient stress test was canceled today prior to this hypotension episode due to being extremely hypertensive with a systolic blood pressure of 201/104. Cardiology will do a stress test in the morning and if negative patient will be discharged back to rehab.
[2020-06-22] MEDS ORDERED: MORPHINE SULFATE 2 MG/ML SYRINGE IVP STA (16:21)
[2020-06-22] MEDS: NICOTINE 21MG/24HR PATCH TRANSDERM SCH (17:13)
[2020-06-22 20:58] VITALS: RESP 16
[2020-06-22] MEDS: traZODone HCL 50 MG TAB PO SCH (21:14)
[2020-06-22] MEDS ORDERED: hydrALAZINE HCL 25 MG TAB PO SCH (22:00)
[2020-06-22] MEDS: MORPHINE SULFATE 4 MG/ML SYRINGE IVP PRN (23:10)
[2020-06-23] MEDS: carvediloL 12.5 MG TAB PO SCH (04:54)
[2020-06-23] MEDS: THIAMINE 100 MG TAB PO SCH (04:54)
[2020-06-23 07:20] VITALS: BP 143/83; PULSE 74; TEMP 98.6
[2020-06-23] MEDS: MORPHINE SULFATE 4 MG/ML SYRINGE IVP PRN (07:30)
[2020-06-23] MEDS ORDERED: LOSARTAN 25 MG TAB PO SCH (09:00)
[2020-06-23] MEDS: PANTOPRAZOLE 40 MG/10 ML VIAL IVP SCH (10:45)
[2020-06-23] MEDS: NICOTINE 21MG/24HR PATCH TRANSDERM SCH (10:45)
[2020-06-23] MEDS: ASPIRIN 325 MG TAB PO SCH (10:45)
--- NOTE | 2020-06-23 12:27 | NM ---
EXAMINATION TYPE: NM stress lexiscan cardiolite DATE OF EXAM: 06/23/2020 COMPARISON: NONE HISTORY: Chest pain TECHNIQUE: After the intravenous administration of 10.1 mCi Tc 99m Sestamibi - Cardiolite resting SP ECT images acquired post injection. The patient received 0.4mg Lexiscan, 2520 mCi Tc 99m Sestamibi - Stress images. FINDINGS: Review of stress and rest SPECT images demonstrates no distinct perfusion abnormality. Gated analysi s shows normal wall motion with an estimated left ventricular ejection fraction of 55 %. IMPRESSION: No scintigraphic evidence for reversible ischemia.
--- NOTE | 2020-06-23 13:37 | P.STRESS ---
- Stress Test Note Stress Test Results/Findings: Exam Performed: NM stress lexiscan cardiolite Exam Date: 06/23/20 Reason for Exam: CP Height: 5 ft 1 in Weight: 54.43 kg Protocol: LEXISCAN CARDIOLITE Stage: NA Duration of Exercise: NA Resting Heart Rate: 62 Resting Blood Pressure: 166/93 Maximum Achieved Heart Rate: 98 Maximum Achieved Blood Pressure: 166/93 85% PMHR: 134 100% PMHR: 158 METS: NA Technologist Comment: Stress Test Results/Findings: At baseline EKG showed normal sinus rhythm, normal axis, LVH with minimal ST depressions in 2, 3, aVF and V5 through V6. Patient recieved IV infusion of Lexiscan 0.4mg and at peak infusion EKG showed accentuation of LVH with ST depressions in leads 2, 3, aVF and V4 through V6 which is nondiagnostic given baseline abnormal EKG. Conclusions: 1. Nonspecific EKG response given baseline EKG abnormalities. 2. Nuclear imaging to be reported separately.
--- NOTE | 2020-06-23 16:46 | P.DS ---
Providers Date of admission: 06/21/20 01:57 Expected date of discharge: 06/23/20 Attending physician: Michael Medeiros Consults: 06/21/20 01:57 Consult Physician Urgent Consulting Provider: Veronique Lamb Consult Reason/Comments: cp Do you want consulting provider notified?: Yes Primary care physician: Ronaldo [place] Hospital Course: Final diagnosis -Chest pain atypical ruled out acute coronary syndromes, ruled out pulmonary embolism. Likely musculoskeletal, stress was negative -shortness of breath: Ruled out PE and pneumonia -History of alcohol abuse presently undergoing rehabilitation -hypertension -history of hepatitis C -History of ankylosing spondylitis. -Continued nicotine use: Counseling was provided Discharge disposition Patient is being discharged in a stable condition with guarded prognosis to [facility]. Patient will follow-up with primary care provider in the outpatient setting upon discharge. Patient will also follow-up with cardiology in the outpatient setting in a few weeks. Total time taken is greater than 35 minutes. Hospital course Patient is a 64-year-old female came in with complains of chest pain which is pressure like sensation 6/10 in severity nonradiating no associated shortness, diaphoresis pain is constant in nature constant patient pain is mostly reproducible. Patient the had a questionable [place] in 2016. Patient had a cardiac catheterization but never received any stents. Patient is presently in alcohol rehabitation program. Patient denied any fever chills patient just pain is nonpleuritic not associated with food. 06/22/2020 Patient was seen and evaluated and follow-up scheduled to undergo a stress test with cardiology although blood pressure was too high. Blood pressure was 204/102. Patient was given hydralazine and started on oral hydralazine along with cardiology starting losartan and patient became hypotensive. Patient was given a 500 mL bolus. Patient is currently 114 systolic and doing better. Patient continues to have chest pain and some nausea noted that she has had since admission. Patient does have Tylenol and/or Toradol ordered although is refusing stating that does not help. 06/23/2020 Patient is seen and evaluated in follow-up with no acute overnight issues. Patient underwent stress test which was negative and will follow-up with cardiology in the outpatient setting. Currently no reports of chest pain, worsening shortness of breath, or palpitations. Patient is afebrile. No reports of nausea or vomiting and patient is tolerating diet. Patient will be discharged home today. On exam vital signs are stable. Cardio S1, S2 are muffled. Respiratory system shows diminished breath sounds at the bases with no wheezing or rhonchi noted. Abdomen is soft and obese, and nontender. Nervous system shows no focal deficits. Please refer to medication reconciliation sheet for a list of medications. Patient Condition at Discharge: Stable Plan - Discharge Summary Discharge Rx Participant: No New Discharge Prescriptions: New Etodolac [Lodine] 400 mg PO BID #10 tab Famotidine [Pepcid] 20 mg PO BID #20 tablet Aspirin 325 mg PO DAILY 30 Days #30 tab Nicotine 21Mg/24Hr Patch [Habitrol] 1 patch TRANSDERM DAILY 30 Days #30 patch Nitroglycerin Sl Tabs [Nitrostat] 0.4 mg SUBLINGUAL Q5M PRN #30 tab PRN Reason: Chest Pain Continue traZODone HCL 50 - 150 mg PO HS Chlorpheniramine Maleate [Chlor-Trimeton] 4 mg PO Q4H PRN PRN Reason: Allergy Symptoms Acetaminophen [Tylenol Arthritis] 650 mg PO Q4H PRN PRN Reason: Pain Loperamide [Imodium] 2 mg PO QID PRN PRN Reason: Loose Stool Trimethobenzamide [Tigan] 300 mg PO Q6H PRN PRN Reason: Nausea ondansetron HCL [Zofran] 8 mg PO Q6H PRN PRN Reason: Nausea busPIRone HCl [Buspar] 10 mg PO TID PRN PRN Reason: Anxiety Carvedilol [Coreg] 12.5 mg PO BID@0600,1730 Thiamine [Vitamin B-1] 100 mg PO DAILY@0600 Multivitamins, Thera [Multivitamin (formulary)] 1 tab PO DAILY@0600 Zofran 42mg/Ml 4 mg IM Q6H PRN PRN Reason: Nausea Tigan 200mg 200 mg IM Q6H PRN PRN Reason: Nausea Discontinued cloNIDine HCL [Catapres] 0.3 mg PO Q4H PRN PRN Reason: Blood Pressure over 160/100 Ibuprofen [Motrin] 600 mg PO Q6H PRN PRN Reason: Pain Discharge Medication List Acetaminophen [Tylenol Arthritis] 650 mg PO Q4H PRN 06/21/20 [History] Carvedilol [Coreg] 12.5 mg PO BID@0600,1730 03/17/21 [History] Chlorpheniramine Maleate [Chlor-Trimeton] 4 mg PO Q4H PRN 06/21/20 [History] Etodolac [Lodine] 400 mg PO BID #10 tab 06/21/20 [Rx] Famotidine [Pepcid] 20 mg PO BID #20 tablet 06/21/20 [Rx] Loperamide [Imodium] 2 mg PO QID PRN 06/21/20 [History] Multivitamins, Thera [Multivitamin (formulary)] 1 tab PO DAILY@0600 06/21/20 [History] Thiamine [Vitamin B-1] 100 mg PO DAILY@0600 06/21/20 [History] Tigan 200mg 200 mg IM Q6H PRN 06/21/20 [History] Trimethobenzamide [Tigan] 300 mg PO Q6H PRN 06/21/20 [History] Zofran 42mg/Ml 4 mg IM Q6H PRN 06/21/20 [History] busPIRone HCl [Buspar] 10 mg PO TID PRN 06/21/20 [History] ondansetron HCL [Zofran] 8 mg PO Q6H PRN 06/21/20 [History] traZODone HCL 50 - 150 mg PO HS 06/21/20 [History] Aspirin 325 mg PO DAILY 30 Days #30 tab 06/23/20 [Rx] Nicotine 21Mg/24Hr Patch [Habitrol] 1 patch TRANSDERM DAILY 30 Days #30 patch 06/23/20 [Rx] Nitroglycerin Sl Tabs [Nitrostat] 0.4 mg SUBLINGUAL Q5M PRN #30 tab 06/23/20 [Rx] Follow up Appointment(s)/Referral(s): Artis Wilhelm DO [STAFF PHYSICIAN] - 2 Weeks (pt to follow with own elementary school tutor) Ronaldo Vazquez DO [Primary Care Provider] - 3 Days Patient Instructions/Handouts: Chest Pain (ED) Activity/Diet/Wound Care/Special Instructions: Patient is returning to [facility] Activity Limited until follow-up Patient will up with cardiology outpatient Follow up with Primary care provider upon discharge Continue to avoid tobacco and alcohol Continue current diet Discharge Disposition: HOME SELF-CARE
--- NOTE | 2020-06-23 22:34 | P.PN ---
Subjective This is a pleasant 64-year-old female past medical history significant for ankylosing spondylitis, Lipitor arthritis, hepatitis C, hypertension, apparent duodenal tear approximately one year ago, tobacco abuse, Vaping abuse, alcohol abuse, questionable "CO" in 2016 who presents secondary to episodes of chest pain, lightheadedness. She has been having chest pain which radiates to both arms off and on over the last few days radiating to the neck. She admits to some associated shortness breath. She was given nitroglycerin in the emergency department however this did not have much effect. She admits she has been drinking much more or last 1 year and therefore went to rehab to detox. She apparently was there and then started noticing that with exertion she will get short of breath and also had some chest pain. She states she believes she had a "small heart attack" back in 2016 out of [facility]. Apparently she had a heart catheterization which showed no significant disease however was also told that she had "damage to a small part of her heart". She admits she has not followed up with her primary cuffing machine operator, Dr. Emmanuel and had prior workup at [facility] in 2016. She had CTA PE protocol which showed no PE and questionable cardiomegaly with reflux contrast in the hepatic veins. EKG reveals normal sinus rhythm, Q waves V1 and V2, no significant ST or T-wave abnormalities. Laboratory reviewed, white blood cell count 5.0, hemoglobin 12.2, platelets 209, creatinine 0.8, AST 44, ALT 25, troponins negative x 3, CRP less than 5. 3/ Patient seen and examined. Patient still having chest pain which is worse with inspiration and with palpation. She admits that the morphine has helped somewhat. Her shortness breath is somewhat improved issues able to take deeper breath in. Unfortunately her blood pressure was very labile yesterday with multiple medications given. She admits is normally fairly well controlled at home. Therefore second portion of stress test was not able to be performed. PHYSICAL EXAMINATION CONSTITUTIONAL: No apparent distress. HEENT: Head is normocephalic. Pupils are equal, round. Sclerae anicteric. Mucous membranes of the mouth are moist. No JVD. No carotid bruit. CHEST EXAMINATION: Lungs are clear to auscultation. No chest wall tenderness is noted on palpation or with deep breathing. HEART EXAMINATION: Regular rate and rhythm. S1, S2 heard. No murmurs, gallops or rub. ABDOMEN: Soft, nontender. Positive bowel sounds. EXTREMITIES: 2+ peripheral pulses, no lower extremity edema and no calf tenderness. NEUROLOGIC EXAMINATION: Patient is awake, alert and oriented x3. ASSESSMENT 1. Atypical chest pain, troponins negative 3, CTA PE protocol no PE 2. Shortness of breath of unclear etiology. Patient stable on room air without significant hypoxia. 3. Tobacco abuse, vaping 4. Chronic alcohol abuse, recently undergoing rehab 5. Questionable history of "small CO" however normal heart catheterization reportedly per patient in 2016 6. Ankylosing spondylitis 7. Rheumatoid arthritis 8. Hypertension 9. Hepatitis C PLAN Check Lexiscan stress test today. If normal, patient may be discharged home. Would discharge patient on home regimen of antihypertensives. Patient with extremes of blood pressure yesterday and suspect major component related to pain and anxiety. Objective - Vital Signs Vital signs: Vital Signs Temp 98.6 F 06/23/20 07:00 Pulse 74 06/23/20 07:00 Resp 16 06/23/20 07:00 BP 143/83 06/23/20 07:00 Pulse Ox 93 L 06/23/20 07:00 Intake & Output 06/23/20 06/23/20 06/24/20 06:59 18:59 06:59 Weight 54.43 kg Other: Voiding Method Toilet # Voids 1 - Labs CBC & Chem 7: 06/20/20 23:28 06/20/20 23:28
== END 2020-06-23 15:33 | disposition home or self-care (01) ==
LOC: EC 23:05 → 6NMEDSUR 06-21 01:57
PROVIDERS: ADMIT Hospitalist; ATTEND Hospitalist
DX: R07.89 Other chest pain (principal); R06.02 Shortness of breath; R11.0 Nausea; R00.2 Palpitations; I10 Essential (primary) hypertension; M45.9 Ankylosing spondylitis of unspecified sites in spine; I95.9 Hypotension, unspecified; E66.9 Obesity, unspecified; Z68.22 Body mass index [BMI] 22.0-22.9, adult; F41.9 Anxiety disorder, unspecified; M19.90 Unspecified osteoarthritis, unspecified site; R94.31 Abnormal electrocardiogram [ECG] [EKG]; F17.200 Nicotine dependence, unspecified, uncomplicated; M06.9 Rheumatoid arthritis, unspecified; F10.10 Alcohol abuse, uncomplicated; I25.10 Atherosclerotic heart disease of native coronary artery without angina pectoris; Z86.19 Personal history of other infectious and parasitic diseases; T78.40XA Allergy, unspecified, initial encounter; Z79.899 Other long term (current) drug therapy; Z20.822 Contact with and (suspected) exposure to COVID-19
CPT/HCPCS: 96376 ×3; 96375 ×2; 96374; 99291; 36415; 94640; 93005; 93017; 93306; 80061; 80053; 83605; 83615; 83735; 84484 ×2; 85025; 85610; 85730; 86140; 87635; 71045; 71275; 78452; G0378 ×3; A9500; S4990 ×2; J2270 ×4; J0360; J2785; J1885 ×2; C9113 ×3; Q9967